=== PATIENT | female | born 1995 | race Caucasian/White ===

== ENCOUNTER 2016-06-17 09:24 | Emergency (ER) | payer BC, OTHER ==
[~2016-06-17 09:24] MED LIST: AUGMENTIN 875-1 EAC2 PO; SPRINTEC 28 DA1 EACH PO
[2016-06-17] MEDS ORDERED: PROTONIX40 M2 (09:29)
== END 2016-06-17 10:30 ==
LOC: EDMED 09:24
DX: J02.9 Acute pharyngitis, unspecified (principal)